=== PATIENT | female | born 1980 | race Caucasian/White ===

== ENCOUNTER → 2017-06-29 09:42 | Outpatient (CLI) | payer BC, SELFPAY ==
--- NOTE | 2017-06-29 09:44 | RAD_ITS ---
STUDY: X-RAY - LEFT SHOULDER REASON FOR EXAM: Female, 36 years old. Pain TECHNIQUE: 3 view(s) of the shoulder. COMPARISON: None. FINDINGS: Normal glenohumeral articulation. Normal acromioclavicular joint. Normal acromion. Normal humeral head and visualized proximal humerus. The soft tissue structures are unremarkable. Normal visualized pulmonary apex. RAD/Shoulder min 2 Views IMPRESSION: Normal x-ray examination of the shoulder. Electronically Signed: Arturo Aguila MD at 9:39 EDT Tel , Service support ,
== END ==
PROVIDERS: Family Provider Internal Medicine; PCP Internal Medicine; Visit Provider Orthopaedic Surgery
DX: M25.512 Pain in left shoulder (principal)
CPT/HCPCS: 73030

== ENCOUNTER → 2019-01-03 11:52 | Outpatient (CLI) | payer BC, SELFPAY ==
[2013-01-27 23:03] VITALS: BMI 27.3
[2019-01-07 16:08] LABS: HPV APTIMA, High Risk Negative (Negative)
== END ==
PROVIDERS: Visit Provider Obstetrics & Gynecology
DX: Z12.4 Encounter for screening for malignant neoplasm of cervix (principal)
CPT/HCPCS: 87624; 88175; G0145

== ENCOUNTER → 2019-01-17 12:15 | Outpatient (CLI) | payer BC, SELFPAY ==
--- NOTE | 2019-01-17 12:43 | BI_ITS ---
BILATERAL DIGITAL MAMMOGRAM WITH TOMOSYNTHESIS: Mediolateraloblique and craniocaudal views demonstrate no evidence of dominant parenchymal masses. No cluster of microcalcifications or architectural distortion is seen. No evidence of skin thickening is identified. No comparison images are available. Breast Density: The breast tissue is heterogeneously dense, which may obscure small masses. CAD was used to assist in final assessment. BI/SCREEN MAMM (CAD) W/HARPER BILAT IMPRESSION: NORMAL MAMMOGRAM BILATERALLY. ASSESSMENT CATEGORY: FINAL ASSESSMENT: BI-RAD CATEGORY I (NEGATIVE) YEARLY MAMMOGRAPHY RECOMMENDED Approximately 10% of breast cancers are not detected by mammography. A normal mammogram should not delay biopsy of a clinically suspicious abnormality. [id number] Electronically Signed: Kodi Francis, at 17:48 EDT Tel , Service support ,
== END ==
PROVIDERS: Referring Provider Obstetrics & Gynecology; Visit Provider Obstetrics & Gynecology
DX: Z12.31 Encounter for screening mammogram for malignant neoplasm of breast (principal)
CPT/HCPCS: 77063; 77067

== ENCOUNTER 2019-03-10 21:08 | Emergency (ER) | payer BC, SELFPAY ==
[2019-03-10 21:09] VITALS: BP 106/74; PULSE 97; RESP 17; TEMP 37.2; O2SAT 99; BMI 25.9
[2019-03-10] MEDS: Ketorolac 15 MG/ML Vial IV (21:43)
[2019-03-10 21:54] LABS: Absolute Lymphocyte Count 0.82 X10^3/uL (0.83-4.51); Absolute Neutrophil Count 1.5 X10^3/uL (2.0-7.7); Basophil# 0.02 X10^3/uL; Basophil% 0.7 % (0-1); Eosinophil# 0.01 X10^3/uL; Eosinophils% 0.4 % (0-5); Hematocrit 45.6 % (37-47); Hemoglobin 14.5 g/dL (12.0-15.0); Lymphocyte # 0.82 X10^3/ul (4.0); Lymphocyte % 30.5 % (19-41); Mean Corp Hgb Conc 31.8 g/dL (32-36); Mean Corpuscular Volume 91.2 fL (81-99); Mean Platelet Vol. 10.2 fl (6.2-12.0); Monocyte# 0.33 X10^3/uL; Monocyte% 12.3 % (0-10); NRBC Flagged by Analyzer 0 % (0-5); Neutrophil # 1.49 X10^3/uL (2.7-7.7); Neutrophil % 55.4 % (47-70); Platelet Count 212 K/mm3 (150-450); RBC Distribution Width CV 12.6 % (11.6-14.6); RBC Distribution Width SD 41.9 fl (35.1-43.9); White Blood Count 2.7 K/mm3 (4.4-11.0)
[2019-03-10 22:04] LABS: Color, Urine Yellow (Yellow); Glucose, Dipstick Normal (Normal); Ketone-Dipstick Negative (Negative); Leukocyte Esterase-Dipstick 25 /ul (Negative); Mucous, Urine 0 SEEN /hpf (<or=2+); Nitrite-Dipstick Negative (Negative); Occult Blood-Urine Negative /ul (Negative); Protein-Dipstick Negative (Negative); Red Blood Cells-Urine 0 SEEN /hpf (0-5); Urine Bilirubin Dipstick Negative (Negative); Urine Clarity Sl. Cloudy (Clear); Urine Urobilinogen 4 mg/dl (Normal); Urine pH 6.5 (5.0 - 8.0)
[2019-03-10 22:08] LABS: Internal QC Validated? YES +Cl - CLEAR BKGD; Pregnancy, Serum, hCG Quali. NEGATIVE Negative
[2019-03-10 22:10] LABS: Anion Gap 6 (5-15); BUN 13 mg/dL (7-18); BUN/Creat Ratio 14.6 RATIO (10-20); Calcium,Total 8.7 mg/dL (8.5-10.1); Chloride 106 mmol/L (98-107); Creatinine, Serum 0.89 mg/dL (0.55-1.02); EST Glomerular Filtration Rate 74 mL/min (>60); Est Glom Filt Rate - Afr Amer 90 mL/min (>60); Estimated Creatinine Clearance 66.46 ml/min; Glucose 92 mg/dL (74-106); Potassium 3.4 mmol/L (3.5-5.1); Sodium Level 140 mmol/L (136-145)
[2019-03-10 22:28] LABS: Bacteria 1+ /hpf (None Seen); Squamous Epithelial Cells - UA 0-5 SEEN /hpf (5-10); White Blood Cells 0-5 SEEN /hpf (0-5)
--- NOTE | 2019-03-10 22:55 | ED.VIS.GEN ---
History of Present Illness Chief Complaint: General Illness Informant: Patient Onset: Days - Several days ago Context: Sudden Onset Timing: Continuous Quality: Malaise, temperature to 100.5, aches and sleeping more Location: Generalized Current Severity: Mild Maximum Severity: Moderate Worsened by: Nothing Relieved by: Nothing Associated Symptoms: Nausea, generalized malaise and fever Narrative: Patient is a 38-year-old woman who presents with temperature to 100.5, malaise, fatigue and sleeping more, vague abdominal pain predominantly on right side. She is status post appendectomy. She denies headache, photophobia, neck pain or neck stiffness. She denies ear pain, ringing or ears or decreased hearing. She has mild congestion. She denies sore throat or difficulty swallowing. She denies cough or shortness of breath. She denies dysuria, frequency, urgency or hematuria. She denies back or flank pain. She denies history of renal ureterolithiasis. She does have remote history of ovarian cyst. Last menses was 1 week ago. She states she is premenopausal. She has not noted a rash. She denies joint swelling or pain. Prior similar symptoms: No Recent Illness/Hospitalization: No - Past Medical History (1) No significant past medical history Status: Acute Past Medical History - Allergies and Home Meds Allergies/Adverse Reactions: Allergies amoxicillin Allergy (Verified 06/29/17 09:43) Rash Primary Care Physician: ANATOLY BARNES [Other] Prior records reviewed: Yes Surgical History: appendectomy Lives: Spouse/ Significant Other, With Family Smoking Status: Never smoker Alcohol: Rare Drugs: None Review of Systems General: Reports: Fever, Malaise, Sweats. Denies: Chills, Subjective Eyes: Denies: Visual changes - bilaterally, Blurred Vision - bilaterally ENT: Reports: Rhinorrhea. Denies: Bilateral ear pain, Sore throat Cardiovascular: Denies: Chest pain, Palpitations Respiratory: Denies: Dyspnea, Cough, Dyspnea on exertion Gastrointestinal: Reports: Abdominal pain, Nausea. Denies: Vomiting, Diarrhea, Constipation, Melena, Hematochezia Genitourinary: Denies: Dysuria, Hematuria, Frequency Musculoskeletal: Reports: Myalgias. Denies: Arthralgias, Neck pain, Back pain, Swelling, Extremity Pain, -, - Skin: Denies: Rash, Wounds Neurological: Reports: Weakness. Denies: Headache, Parasthesia, Numbness, -, - Hematologic: Denies: Easy bruising, Easy bleeding Physical Exam Vital Signs/Narrative: Vital Signs Temp Pulse Resp BP Pulse Ox 03/10/19 21:09 99 F 97 17 106/74 99 Inital Vital Signs reviewed: Yes General: Well nourished, Well developed, No Acute Distress, - - Does appear slightly pale and ill. Head: Normocephalic, Atraumatic Eyes: Perrl, EOMI. Negative for: Pale conjunctiva, Scleral icterus ENT: Moist mucous membranes, TM's clear, Nasal congestion. Negative for: No rhinorrhea, Sinus tenderness Neck: Supple, Nontender, No lymphadenopathy, No JVD Cardiovascular: Regular rate, Regular rhythm, No murmurs, Normal S1, Normal S2 Respiratory: No distress, CTA bilaterally, Chest nontender Abdomen: Soft, No masses, Tender - Right lower quadrant over appendectomy scar, Hypoactive bowel sounds. Negative for: Nondistended, Normal bowel sounds, Guarding, Rebound tenderness, Hyperactive bowel sounds, Hepatomegaly, Splenomegaly, Mass, Ventral hernia, Umbilical hernia Rectal: Deferred Back: Nontender, Normal Inspection. Negative for: CVA tenderness Extremities: Nontender, No edema Skin: No rash, No Trauma, Pallor. Negative for: Cyanosis, Diaphoresis, Jaundice Neurological: Alert, Oriented x3, Cranial nerves II-XII grossly intact, Normal Strength, Normal Sensation, Normal DTR Psychological: Normal affect Diagnostic/Tx/Re-eval Laboratory Results 03/10/19 03/10/19 03/10/19 21:37 21:37 21:37 WBC 2.7 L RBC 5.00 Hgb 14.5 Hct 45.6 MCV 91.2 MCH 29.0 MCHC 31.8 L RDW Std Deviation 41.9 RDW Coeff of Lucius 12.6 Plt Count 212 MPV 10.2 Immature Gran % (Auto) 0.700 Neut % (Auto) 55.4 Lymph % (Auto) 30.5 Maries % (Auto) 12.3 H Eos % (Auto) 0.4 Baso % (Auto) 0.7 Absolute Neuts (auto) 1.5 L Absolute Lymphs (auto) 0.82 L Nucleated RBC % 0 Sodium 140 Potassium 3.4 L Chloride 106 Carbon Dioxide 28.0 Anion Gap 6 BUN 13 Creatinine 0.89 Estim Creat Clear Calc 66.46 Est GFR (MDRD) Af Amer 90 Est GFR (MDRD) Non-Af 74 BUN/Creatinine Ratio 14.6 Glucose 92 Calcium 8.7 Serum , Qual NEGATIVE Urine Color Urine Clarity Urine pH Ur Specific [place] Urine Protein Urine Glucose (UA) Urine Ketones Urine Occult Blood Urine Nitrite Urine Bilirubin Urine Urobilinogen Ur Leukocyte Esterase Urine RBC Urine WBC Ur Squamous Epith Cells Urine Bacteria Urine Mucus 03/10/19 21:50 WBC RBC Hgb Hct MCV MCH MCHC RDW Std Deviation RDW Coeff of Lucius Plt Count MPV Immature Gran % (Auto) Neut % (Auto) Lymph % (Auto) Maries % (Auto) Eos % (Auto) Baso % (Auto) Absolute Neuts (auto) Absolute Lymphs (auto) Nucleated RBC % Sodium Potassium Chloride Carbon Dioxide Anion Gap BUN Creatinine Estim Creat Clear Calc Est GFR (MDRD) Af Amer Est GFR (MDRD) Non-Af BUN/Creatinine Ratio Glucose Calcium Serum , Qual Urine Color Yellow Urine Clarity Sl. Cloudy Urine pH 6.5 Ur Specific [place] 1.010 Urine Protein Negative Urine Glucose (UA) Normal Urine Ketones Negative Urine Occult Blood Negative Urine Nitrite Negative Urine Bilirubin Negative Urine Urobilinogen 4 H Ur Leukocyte Esterase 25 H Urine RBC 0 SEEN Urine WBC 0-5 SEEN Ur Squamous Epith Cells 0-5 SEEN Urine Bacteria 1+ Urine Mucus 0 SEEN White count is low. Differential is unremarkable. Urine is negative for blood, leukoesterase and nitrites. There are 0-5 WBCs and 1+ bacteria. This is not suggestive of a urinary tract infection. - Medical Decision Making Presents with vague symptoms and fever. Since she appears ill UA was obtained as well as CBC and basic metabolic panel. Work-up would suggest that she has a viral illness. She was informed that she may be ill for another 7 to 10 days. ED Disposition - Plan for ED Patient: Disposition: Home or Assisted Living Diagnosis: Systemic viral illness, Fever Instructions: VIRAL SYNDROME (Adult) Referrals: ANATOLY BARNES [Other] - 10-14 Days if not better
[2019-03-10 23:08] VITALS: BP 93/65; PULSE 73; RESP 16; O2SAT 99
== END 2019-03-10 23:08 | disposition home or self-care (01) ==
PROVIDERS: Emergency Provider Emergency Medicine
DX: B34.9 Viral infection, unspecified (principal); R50.9 Fever, unspecified; R53.81 Other malaise; R10.9 Unspecified abdominal pain; R09.81 Nasal congestion; J34.89 Other specified disorders of nose and nasal sinuses; R11.0 Nausea; R53.1 Weakness; N83.209 Unspecified ovarian cyst, unspecified side
CPT/HCPCS: 80048; 81001; 84703; 85025; 96374; 99283; A4216

== ENCOUNTER 2021-02-28 17:33 | Emergency (ER) | payer BC, SELFPAY ==
[2021-02-28 17:34] VITALS: BP 102/70; PULSE 78; RESP 14; TEMP 36.7; O2SAT 100; BMI 25.8
--- NOTE | 2021-02-28 18:22 | EKG12_ITS ---
Test Reason : ABD PAIN Blood Pressure : / mmHG Vent. Rate : 089 BPM Atrial Rate : 089 BPM P-R Int : 134 ms QRS Dur : 084 ms QT Int : 402 ms P-R-T Axes : 073 084 053 degrees QTc Int : 489 ms Normal sinus rhythm Prolonged QT Abnormal ECG No previous ECGs available Confirmed by NELIDA MOODY, SAL ([id number]), assistant editor DELMAR HORAN ([id number]) on 03/04/2021 11:54:16 AM Referred By: LAWRENCE Confirmed By:SAL KRAUSE MD
--- NOTE | 2021-02-28 18:22 | CT_ITS ---
INDICATION: abd pain EXAMINATION: CT ABDOMEN AND PELVIS with CONTRAST - CT Abdomen And Pelvis W/ Contrast Injection TECHNIQUE: Multiple axial images were obtained of the abdomen following administration of IV contrast. Planar reconstructions obtained. A radiation dose optimization technique was used for this scan. IV Contrast dosage and agent: 100 mL Isovue-370 Oral contrast: None. Radiation Dose (provided by facility) CTDIvol (15.15 ) mGy, DLP ( 501.16) mGy-cm COMPARISON: None. FINDINGS: LOWER THORAX: Lungs are clear. HEPATOBILIARY: Liver: The liver is normal size and configuration. There are several faint low density lesions within the liver, too small to characterize measuring approximately 3 to 4 mm in size likely representing small cysts.. Gallbladder: The gallbladder is unremarkable. Pancreas: Pancreas is normal size configuration and density. No mass is noted. Spleen: The spleen is homogeneous and normal in size. . BOWEL: Stomach: The stomach is normal in size configuration, no evidence of focal masses, abnormal calcifications. No hiatal hernia noted. Bowel: There is a nonspecific pattern of bowel with a moderate amount of retained stool in the colon. No evidence of bowel obstruction. No diverticulitis evident. Appendix: Not clearly demonstrated.: GENITOURINARY: Adrenals: Both adrenal glands are normal in size. Kidneys: Kidneys appear symmetric in size. No calcifications are seen in the collecting system. There is no hydronephrosis or surrounding fluid. Bladder: Normal Pelvic organs: Uterus is normal configuration, is retroflexed. There is a small enhancing lesion in the RIGHT ovary consistent with a small hemorrhagic cyst measuring approximately 1.3 cm in maximal dimension. Trace nonspecific fluid is present in the pelvis. RETROPERITONEUM: There is normal appearance of the abdominal aorta and inferior vena cava. LYMPH NODES: No evidence of retroperitoneal or para-aortic masses fluid collections or adenopathy. PERITONEAL CAVITY: Trace nonspecific fluid is present and pelvis. No other evidence of ascites. ANTERIOR ABDOMINAL WALL: Small periumbilical fat-containing hernia is present. BONES AND SOFT TISSUES: The skeleton shows no evidence for fractures or destructive lesions. OTHER: None CT/Abdomen/Pelvis W IV Cont ONLY IMPRESSION: 1. No evidence of masses bowel obstruction abscess free fluid or free air. No evidence diverticulitis. The appendix is not adequately visualized. 2. No evidence of obstructive uropathy. 3. Trace nonspecific fluid in the pelvis and a small peripheral enhancing lesion in the RIGHT ovary consistent with a small hemorrhagic cyst measuring 13 mm in size. 4. Several small low-density lesions within the liver too small to characterize measuring approximately 3 to 4 mm likely representing small cysts. 5. No evidence of calcifications in the gallbladder appeared Electronically Signed: Carroll Fuentes MD at 20:36 EST Tel , Service support ,
--- NOTE | 2021-02-28 18:24 | EDS_ITS ---
HPI <Dr. West Meehan MD - Last Filed: 03/01/21 22:08> HPI - GI History of Present Illness Chief Complaint: Abd Pain Informant: patient Associated Symptoms LMP: Sometime in December. Narrative Narrative: Patient presents with relatively sudden onset of lower central abdominal/pelvic pain. She states it seemed to wrap to both sides and go to her back a bit but it still centered anteriorly. She was driving at the time. Not syncopal. However she did get nauseated and break out a bit of a sweat. The pain did not go up. Its not tearing or ripping. She has no chest pain. She has no back pain other than what wrapped around very low. No numbness tingling weakness. She has never had this before. She felt fine prior to this. No history of torsion or ovarian abnormality that I can obtain. No prior abdominal surgery. Patient did start menopause at 37 years old. She is on progesterone for this. She has had no vaginal discharge or bleeding. Nothing really makes her symptoms better or worse. They do wax and wane. PFSH <Dr. West Meehan MD - Last Filed: 03/01/21 22:08> [facility] Home Medications multivitamin 1 tab PO QAM 06/29/17 [History Last Taken Unknown] thyroid (pork) 30 mg PO DAILY 03/10/19 [History Last Taken Unknown] Allergy/AdvReac Type Severity Reaction Status Date / Time amoxicillin Allergy Rash Verified 02/28/21 17:35 Surgical History h/o deviated septum Hx of appendectomy Social History Smoking Status: Never smoker ROS <Dr. West Meehan MD - Last Filed: 03/01/21 22:08> ROS ED Constitutional Constitutional ED: Denies fever(s) or subjective ENT ENT ED: Denies rhinorrhea Cardiovascular Cardiovascular: Denies chest pain, palpitations or racing heartbeat Respiratory/Chest Respiratory/Chest: Denies cough, dyspnea, dyspnea on exertion or sputum Gastrointestinal Gastrointestinal: Reports abdominal pain and nausea; Denies constipation, diarrhea, melena or vomiting Genitourinary Genitourinary ED: Denies dysuria, hematuria or urinary frequency Musculoskeletal Musculoskeletal: Reports other Details: Pain does radiate toward her back. She points very low at her's around the belt line. No other areas of back pain. ; Denies arthralgias, myalgias or neck pain Integumentary Denies rash Neurologic Neurologic: Denies headache(s), paresthesias or weakness Endocrine Endocrinology: Denies polydipsia or polyuria Hematologic/Lymphatic Hematologic/Lymphatic: Denies easy bleeding or easy bruising Allergic/Immunologic Allergic/Immunologic ED: Denies urticaria EXAM <Dr. West Meehan MD - Last Filed: 03/01/21 22:08> Physical Exam Const Vital Signs: 02/28/21 17:34 Temperature 98.1 F Temperature Source Temporal Pulse Rate 78 Respiratory Rate 14 Blood Pressure 102/70 Blood Pressure Mean 80 Pulse Ox 100 Oxygen Delivery Method Room Air Patient looks quite uncomfortable. She has some pillow erection. No diaphoresis at this time. Positive well nourished and well developed General Appearance ED: well developed; Negative for pallor HEENT normocephalic and atraumatic Eyes General Eye ED: Negative for pale conjunctiva or scleral icterus Neck no JVD Resp normal respiratory effort and clear to auscultation bilaterally Auscultation: Negative for rales, rhonchi or wheezes Cardio regular rate, regular rhythm and no murmurs Rate: Negative for bradycardia or tachycardic GI non-tender, non-distended and no masses GI Narrative: Despite the patient's pain, her abdomen is actually benign. I even asked her if pressing bothers her her hurts more and she denies this. Her abdomen is not distended. Bowel sounds are normal. I see no bruising or abnormalities. Auscultation: normoactive bowel sounds Palpation: soft Narrative: Pain is in the suprapubic area but there is no tenderness. No CVA tenderness. Back/Spine no CVA tenderness Extremity full ROM Extremity Narrative: Extremities have good color. They are nontender. They have good pulses. No mottling. General Extremety ED: Negative for edema or tenderness General Extremity: Negative for edema Neuro Sensorium / Orientation: alert Psych mental status grossly normal Skin General Skin Exam: Negative for jaundice or pallor Lesions: no lesions Rashes: no rashes and No rashes noted <Dr. Milo Gaines DO - Last Filed: 02/28/21 23:50> Physical Exam Const Vital Signs: 02/28/21 17:34 Temperature 98.1 F Temperature Source Temporal Pulse Rate 78 Respiratory Rate 14 Blood Pressure 102/70 Blood Pressure Mean 80 Pulse Ox 100 Oxygen Delivery Method Room Air [facility] <Dr. West Meehan MD - Last Filed: 03/01/21 22:08> [facility] Narrative Medical decision making narrative: Patient is rechecked. Her pain is essentially gone. She states she has a minimal ache. She feels much better. It has been sometime since her fentanyl. She states she has had ovarian cyst and does have polycystic ovarian syndrome. However she does not recall ever having a cyst rupture. She has no bleeding or discharge. She feels good at this time. She states her normal blood pressure is only in the high 80s systolic. She felt good enough to go home. I did talk to her that I was concerned with her lactate elevation. She states that she was kate her muscles very severely when she was having pain and she thinks this may have caused that. It certainly possible. Her CT shows a small ovarian cyst on the right. But it does not show a significantly enlarged or abnormal ovary. I talked to the patient. I do have some concerns of torsion although they are not high. But if this is torsion this will likely come back. I did convince her to stay and get an ultrasound. We are also rechecking her lactic acid. Lab Data Attestation: I reviewed the patient's lab results. Labs: Laboratory Results - last 24 hr 02/28/21 23:05 Lactic Acid 1.0 Radiography Diagnostic Testing: Clinical Impression(s) from Imaging Studies Abdomen/Pelvis CT 02/28/21 18:22 IMPRESSION: 1. No evidence of masses bowel obstruction abscess free fluid or free air. No evidence diverticulitis. The appendix is not adequately visualized. 2. No evidence of obstructive uropathy. 3. Trace nonspecific fluid in the pelvis and a small peripheral enhancing lesion in the RIGHT ovary consistent with a small hemorrhagic cyst measuring 13 mm in size. 4. Several small low-density lesions within the liver too small to characterize measuring approximately 3 to 4 mm likely representing small cysts. 5. No evidence of calcifications in the gallbladder appeared Electronically Signed: Carroll Fuentes MD at 20:36 EST Tel , Service support , Transvaginal US 02/28/21 21:27 IMPRESSION: 1. Normal appearing uterus and left ovary. 2. Involuting cyst in the right ovary without other abnormality. 3. No evidence of ovarian torsion. 4. Minimal free fluid in the posterior cul-de-sac, thought to be physiologic. Electronically Signed: Josue TerezaDO at 23:28 EST Tel [phone], Service support , EKG Initial EKG: Comments: EKG read by me shows normal sinus rhythm with overall rate of 89. No ectopy. There is irregular baseline but no acute ST elevation or depression. [place] interval, QRS duration are normal. QTc is slightly long at 489 ms. <Dr. Milo Gaines DO - Last Filed: 02/28/21 23:50> [facility] Narrative Medical decision making narrative: Patient was signed out to me pending repeat lactic acid value as well as transvaginal ultrasound. Ultrasound revealed good blood flow to both ovaries with no torsion changes and the repeat lactic is now down to a normal value of 1. On reevaluation the patient does report feeling much better and abdominal exam remains soft and nonsurgical. At this time I feel she had a ruptured ovarian cyst based on her symptoms and imaging studies. However as the pain is now improved her lactate is now normal and there is no signs of torsion there is no need for further work-up and she is safe for discharge. Lab Data Attestation: I reviewed the patient's lab results. Labs: Laboratory Results - last 24 hr 02/28/21 23:05 Lactic Acid 1.0 Radiography Diagnostic Testing: Clinical Impression(s) from Imaging Studies Abdomen/Pelvis CT 02/28/21 18:22 IMPRESSION: 1. No evidence of masses bowel obstruction abscess free fluid or free air. No evidence diverticulitis. The appendix is not adequately visualized. 2. No evidence of obstructive uropathy. 3. Trace nonspecific fluid in the pelvis and a small peripheral enhancing lesion in the RIGHT ovary consistent with a small hemorrhagic cyst measuring 13 mm in size. 4. Several small low-density lesions within the liver too small to characterize measuring approximately 3 to 4 mm likely representing small cysts. 5. No evidence of calcifications in the gallbladder appeared Electronically Signed: Carroll Fuentes MD at 20:36 EST Tel , Service support , Transvaginal US 02/28/21 21:27 IMPRESSION: 1. Normal appearing uterus and left ovary. 2. Involuting cyst in the right ovary without other abnormality. 3. No evidence of ovarian torsion. 4. Minimal free fluid in the posterior cul-de-sac, thought to be physiologic. Electronically Signed: Josue Starks DO at 23:28 EST Tel [phone], Service support , Discharge Plan Triage Chief Complaint: Abd Pain ED Provider: West Meehan Dx/Rx/DC Orders Clinical Impression: Ovarian cyst rupture Instructions: ED Ovarian Cyst Prescriptions: No Action multivitamin [One Daily Multivitamin] tablet 1 tab PO QAM RF: 0 thyroid (pork) 30 tablet 30 mg PO DAILY RF: 0 Primary Care Provider: Care Physician,No Primary Referrals: Steph Spaulding DO [STAFF PHYSICIAN] - 1 Week if not improving Care Physician,No Primary [Primary Care Provider] - Disposition Disposition: Home, Self Care Discharge Date/Time: 03/01/21 00:02
[2021-02-28] MEDS: 0.9% Normal Saline 1,000 ML 1000 ML IV (18:40)
[2021-02-28] MEDS: Ondansetron 4 MG/2 ML Vial IV (18:40)
[2021-02-28] MEDS: fentaNYL 100 MCG/2 ML Ampul 25 MCG IV (18:41)
[2021-02-28 18:48] LABS: Absolute Lymphocyte Count 2.56 X10^3/uL (0.83-4.51); Absolute Neutrophil Count 2.8 X10^3/uL (2.0-7.7); Basophil# 0.04 X10^3/uL; Basophil% 0.7 % (0-1); Eosinophil# 0.17 X10^3/uL; Eosinophils% 2.8 % (0-5); Hematocrit 39.7 % (37-47); Hemoglobin 13.1 g/dL (12.0-15.0); Lymphocyte # 2.56 X10^3/ul (0.83-4.51); Lymphocyte % 42.2 % (19-41); Mean Corpuscular Hgb 29.8 pg (27.0-32.0); Mean Corpuscular Volume 90.4 fL (81-99); Mean Platelet Vol. 9.8 fl (6.2-12.0); Monocyte# 0.47 X10^3/uL; Monocyte% 7.7 % (0-10); NRBC Flagged by Analyzer 0 % (0-5); Neutrophil # 2.81 X10^3/uL (2.7-7.7); Neutrophil % 46.3 % (47-70); Platelet Count 247 K/mm3 (150-450); RBC Distribution Width CV 12.7 % (11.6-14.6); RBC Distribution Width SD 41.9 fl (35.1-43.9); Red Blood Count 4.39 M/mm3 (4.2-5.4); White Blood Count 6.1 K/mm3 (4.4-11.0)
[2021-02-28 18:56] LABS: Internal QC Validated? YES +Cl - CLEAR BKGD; Pregnancy, Serum, hCG Quali. NEGATIVE Negative
[2021-02-28 18:59] LABS: ALB/GLOB Ratio 1.2 RATIO (0.9-2.4); AST(SGOT) 10 U/L (15-37); Alanine Aminotransfer ALT/SGPT 17 U/L (13-56); Alkaline Phosphatase 66 U/L (45-117); Anion Gap 6 (5-15); BUN 14 mg/dL (7-18); Chloride 109 mmol/L (98-107); Creatinine, Serum 1.55 mg/dL (0.55-1.02); EST Glomerular Filtration Rate 39 mL/min (>60); Est Glom Filt Rate - Afr Amer 47 mL/min (>60); Globulin 3.2 g/dL (2.2-4.2); Glucose 121 mg/dL (74-106); Lipase 83 U/L (73-393); Potassium 3.7 mmol/L (3.5-5.1); Protein, Total 7.2 g/dL (6.4-8.2); Sodium Level 140 mmol/L (136-145)
[2021-02-28 19:04] LABS: Lactic Acid 3.2 mmol/L (0.4-1.9)
[2021-02-28 20:17] LABS: Bacteria 0 SEEN /hpf (None Seen); Color, Urine Yellow (Yellow); Glucose, Dipstick Normal (Normal); Ketone-Dipstick Negative (Negative); Leukocyte Esterase-Dipstick Negative /ul (Negative); Mucous, Urine 0 SEEN /hpf (<or=2+); Nitrite-Dipstick Negative (Negative); Occult Blood-Urine Negative /ul (Negative); Protein-Dipstick Negative (Negative); Red Blood Cells-Urine 0 SEEN /hpf (0-5); Squamous Epithelial Cells - UA 0 SEEN /hpf (5-10); Urine Bilirubin Dipstick Negative (Negative); Urine Clarity Clear (Clear); Urine Urobilinogen Normal (Normal); Urine pH 6.5 (5.0 - 8.0); White Blood Cells 0 SEEN /hpf (0-5)
--- NOTE | 2021-02-28 21:27 | US_ITS ---
STUDY: ULTRASOUND TRANSVAGINAL CLINICAL: Female, 40 years old. Ovarian cysts. Questionable torsion. TECHNIQUE: Transvaginal COMPARISON: CT of the abdomen and pelvis, 02/28/2021. FINDINGS: The uterus is anteverted and retroflexed, measuring 9 x 6.2 x 5.6 cm There are no myometrial masses. Endometrium measures 10.6 mm in thickness and is hyperechoic. There are no endometrial masses, and there is no fluid in the endometrial cavity. There are nabothian cysts in the cervix. Normal right ovary, measuring 3 x 2.6 x 2.4 cm. There are multiple follicles. There is a involuting cyst measuring 0.9 cm in diameter Normal vascularity on DOPPLER imaging. Normal left ovary, measuring 0.9 x 1.9 x 2.1 cm. There are multiple follicles without a dominant cyst. Normal vascularity on DOPPLER imaging. There is minimal free fluid in the posterior cul-de-sac. Polycystic ovary disease: No. US/Transvaginal Non- IMPRESSION: 1. Normal appearing uterus and left ovary. 2. Involuting cyst in the right ovary without other abnormality. 3. No evidence of ovarian torsion. 4. Minimal free fluid in the posterior cul-de-sac, thought to be physiologic. Electronically Signed: Josue Starks DO at 23:28 EST Tel [phone], Service support ,
[2021-02-28 22:33] LABS: Reflex Lactate? Y
== END 2021-03-01 00:02 | disposition home or self-care (01) ==
PROVIDERS: Emergency Provider Emergency Medicine
DX: N83.291 Other ovarian cyst, right side (principal)
CPT/HCPCS: 74177; 76830; 80053; 81001; 83605; 83690; 84703; 85025; 86850; 86900; 86901; 93005; 93976; 96361; 96374; 96375; 99284; J7030; Q9967; A4216; J2405

== ENCOUNTER 2021-06-03 10:42 | Outpatient (CLI) | payer BC, SELFPAY ==
--- NOTE | 2021-06-03 11:07 | BI_ITS ---
MAMMOGRAPHY - BILATERAL SCREENING REASON FOR EXAM: Female, 40 years old. Routine annual screening examination. PERTINENT HISTORY: Grandmother with breast cancer. Aunts with breast cancer. TECHNIQUE: Digital bilateral breast harper (3D mammographic acquisition) in the CC and MLO projections. 2-D mediolateral oblique (MLO) and craniocaudad (CC) views of both breasts were obtained. CAD: Full Field Digital Mammography with Computer Added Detection was performed. COMPARISON: Comparison is made with prior study 01/17/2019. FINDINGS: Breast Composition: There are scattered areas of fibroglandular density. There are no dominant masses or suspicious calcifications. No other significant abnormalities are identified. There has been no significant change since the prior study. BI/SCRN MAMM (CAD)W/HARPER BILAT IMPRESSION: Stable bilateral screening mammogram. Yearly follow-up mammogram recommended. (A) ASSESSMENT CATEGORY: BIRADS Category 1: Negative. A letter regarding these results will be sent to the patient by the facility within 30 days. Approximately 10% of breast cancers are not detected by mammography. A normal mammogram should not delay biopsy of a clinically suspicious abnormality. [id number] Electronically Signed: Jeramie Kearns MD at 11:54 EST ,
== END 2021-06-03 23:59 | disposition home or self-care (01) ==
LOC: OPBI 11:05
PROVIDERS: Referring Provider Obstetrics & Gynecology; Visit Provider Obstetrics & Gynecology
DX: Z12.31 Encounter for screening mammogram for malignant neoplasm of breast (principal)
CPT/HCPCS: 77063; 77067

== ENCOUNTER → 2021-09-02 | Outpatient (CLI) | payer BC, SELFPAY ==
[2021-09-09 08:06] LABS: HPV APTIMA, High Risk Negative (Negative)
== END | disposition home or self-care (01) ==
LOC: LABSPEC 16:10
PROVIDERS: Visit Provider Obstetrics & Gynecology
DX: Z12.4 Encounter for screening for malignant neoplasm of cervix (principal)
CPT/HCPCS: 87624; 88175; G0145